=== PATIENT | female | born 1995 | race Caucasian/White ===

== ENCOUNTER 2018-05-06 22:44 | Observation (INO) ==
[2018-05-06 23:32] LABS: Bilirubin,Urine Negative (Negative); Blood,Urine Negative (Negative); Clarity,Urine Turbid (Clear); Color,Urine Yellow (Yellow); Glucose,Urine (UA) Normal (Normal); Ketones,Urine 15 mg/dL (Negative); Leukocyte Esterase,Urine Moderate (Negative); Nitrite,Urine Negative (Negative); Protein,Urine 30 mg/dL (Neg-Trace); Specific Gravity,Urine 1.026 (1.010-1.025); Urobilinogen,Urine Normal (Normal)
[2018-05-06 23:34] LABS: Bacteria,Urine Moderate per hpf (None-Few); Hyaline Casts,Urine None Seen per lpf (None-Few); Squamous Epithelial Cell,Urine Many per lpf (None-Few)
[2018-05-06 23:42] LABS: Amphetamine Screen,Urine Negative ng/mL (Cutoff=1000); Barbiturate Screen,Urine Negative ng/mL (Cutoff=200); Benzodiazepines Screen,Urine Negative ng/mL (Cutoff=200); Cannabinoid Screen,Urine Negative ng/mL (Cutoff = 50); Cocaine Screen,Urine Negative ng/mL (Cutoff= 300); Opiate Screen,Urine Negative ng/mL (Cutoff=300); Phencyclidine Screen,Urine Negative ng/mL (Cutoff=25)
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
== END 2018-05-07 00:07 | disposition home or self-care (01) ==
LOC: 1NENULAB
PROVIDERS: ADMIT Advanced Practice Midwife; ATTEND Advanced Practice Midwife

== ENCOUNTER 2018-06-19 06:00 | Inpatient (IN) ==
[2018-06-19] MEDS ORDERED: Famotidine 20 MG/2 ML VIAL IVP PRN (06:44)
[2018-06-19] MEDS ORDERED: Naloxone 0.4 MG/ML INJ IVP PRN ×2 (06:44→15:55)
[2018-06-19 07:03] LABS: Basophils % 0.1 %; Eosinophils # 0.1 K/mcL (0.0-0.6); Hematocrit 35.9 % (35.3-44.9); Hemoglobin 11.9 g/dL (11.5-15.4); Immature Granulocytes % 0.4 % (0-4); Lymphocytes # 1.7 K/mcL (0.6-4.6); Lymphocytes % 19.9 %; Mean Corpuscular HGB Conc 33.1 g/dL (31.6-35.5); Mean Corpuscular Hemoglobin 27.5 pg (28.0-33.3); Mean Corpuscular Volume 82.9 fL (83.0-100.0); Mean Platelet Volume 10.2 fL (9.4-12.4); Monocytes # 0.6 K/mcL (0.0-1.3); Monocytes % 7.6 %; Neutrophils # 5.9 K/mcL (1.6-8.9); Platelet Count 239 K/mcL (140-400); Red Blood Count 4.33 M/mcL (3.82-4.97)
[2018-06-19 07:07] LABS: Amphetamine Screen,Urine Negative ng/mL (Cutoff=1000); Barbiturate Screen,Urine Negative ng/mL (Cutoff=200); Benzodiazepines Screen,Urine Negative ng/mL (Cutoff=300); Cannabinoid Screen,Urine Negative ng/mL (Cutoff = 50); Cocaine Screen,Urine Negative ng/mL (Cutoff= 300); Opiate Screen,Urine Negative ng/mL (Cutoff=300); Phencyclidine Screen,Urine Negative ng/mL (Cutoff=25)
[2018-06-19] MEDS ORDERED: miSOPROStol 100 MCG TABLET PO ONE (07:43)
[2018-06-19] MEDS ORDERED: *HR* Nalbuphine 10 MG/ML AMPUL IVP PRN (07:44)
[2018-06-19] MEDS ORDERED: D5% in 0.45% NACL 1,000 ML IVC SCH (07:45)
[2018-06-19] MEDS ORDERED: Penicillin G Potassium 5,000,000 UNIT in 0.9 % Sodium Chloride Mini Bag 100 ML IVPB ONE (07:46)
--- NOTE | 2018-06-19 08:58 | OB/GYN History & Physical ---
Date of Encounter: 06/19/18 Time of Encounter: 08:55 Assessment and Plan (1) 39 weeks gestation of Current visit: Yes Status: Acute Cytotec induction-PO already given. EFM with anticipation of vaginal delivery (2) GDM, class A2 Current visit: Yes Status: Acute Patient states she had been on bid Metformin but had it lowered to once daily and her blood sugars have been normal. Her most recent ultrasound at [facility] on 05/27 EFW 2676 gm (5lb 14 oz) and LESLIE 15.94 cm. (3) Obesity affecting in third trimester Current visit: Yes Status: Acute (4) GBS (group B Streptococcus carrier), +RV culture, currently Current visit: Yes Status: Acute PCN IV already started History of Present Illness Chief complaint: patient presents for induction of labor HPI: Ms. Pace is a 23 year old female G1 at 39 1/7 weeks presents to labor and delivery for induction due to her GDM status. She denies any leaking fluid or vaginal bleeding. She reports good movement. She denies any other complications with the . She states she has an allergy to naproxen that causes dizziness. She states she can take ibuprofen and aspirin without difficulty. Past Med Surg Social Fam HX - Past Medical History Source: patient Medical history: non-contributory Psychiatric history: no psych history - Past Surgical History Surgical History: other Additional surgical history: above left-cyst removed from her face - Social History Smoking Status: Never smoker Smokeless Tobacco Status: No Alcohol use: none Drug use: none - Family History Father Adopted: No Hx Family Cardiac Disorders: No Hx Family Respiratory Disorders: No Hx Family Cancer: No Hx Family GI Disorders: No Hx Family Genitourinary Disorders: No Hx Family Endocrine Disorder: Yes (DM) Hx Family Musculoskeletal Disorders: No Hx Family Neuromuscular Disorders: No Hx Family Neurologic Disorders: No Hx Family HEENT Disorders: No Hx Family Autoimmune Disorders: No Hx Family Reproductive Disorders: No Hx Family Psychosocial Disorders: No Hx Family Medical Disorders: No Obstetrical History - Pregnancies : 1 Medications and Allergies Flintstones 2 tab PO DAILY 05/06/18 [History] Metformin HCl 500 mg PO BID 05/06/18 [History] 3 Allergy/AdvReac Type Severity Reaction Status Date / Time naproxen Allergy Drowsy Verified 06/19/18 06:42 Review of System OB All systems PM: reviewed and no additional remarkable complaints except as stated Exam - Constitutional Constitutional: well developed - HEENT HEENT: EOMI - Lungs Respiratory exam: CTAB - Cardiovascular Cardiovascular exam: RRR - Abdomen Abdomen: Present: bowel sounds normal, gravid, non tender - Vulva Vulva: bilateral: normal - Vagina Vagina: Present: normal moisture - Cervix Dilation: 2 Effacement: 80 Station: -3 Results Result Diagrams: 06/19/18 06:30 Abnormal lab results MCV 82.9 fL (83.0-100.0) L 06/19/18 06:30 MCH 27.5 pg (28.0-33.3) L 06/19/18 06:30 RDW 15.0 % (11.5-14.5) H 06/19/18 06:30 All other labs normal. - VTE Reasons for not Prescribing Prophylaxis: Treatment not Indicated - Low risk for VTE
[2018-06-19] MEDS: Penicillin G Potassium 2,500,000 UNIT in 0.9 % Sodium Chloride 100 ML IVPB SCH ×2 (12:56→17:18)
--- NOTE | 2018-06-19 13:25 | OB Labor Progress Note ---
Date of Encounter: 06/19/18 Time of Encounter: 13:21 Labor Progress Note - Subjective Subjective: Patient denies any complaints. She states she felt some contractions. - Cervix Cervix: 4/80/-3 cephalic - Heart Tones Heart Tones: category 1, baseline 140 - Haystack Haystack: q2-5 minutes - Interventions Interventions: AROM with clear fluid. IUPC placed without difficulty - Plan Plan: Continue expectant management. Augment with pitocin if needed.
[2018-06-19] MEDS ORDERED: Oxytocin 20 units/ LR 1000 mL 20 UNIT/1,000 ML BAG IVC SCH (13:30)
[2018-06-19] MEDS ORDERED: Ringers Solution, Lactated 1,000 ML ONE ×2 (15:25→15:47)
[2018-06-19] MEDS ORDERED: *HR* FentaNYL (PF) 100 MCG/2 ML VIAL EP ONE (15:55)
[2018-06-19] MEDS ORDERED: Bupivacaine-MPF 0.25% 10 ML VIAL EP ONE (15:55)
[2018-06-19] MEDS ORDERED: *HR* Ropivacaine/PF 0.2% 20 ML VIAL EP ONE (15:55)
[2018-06-19] MEDS ORDERED: Ondansetron 4 MG/2 ML VIAL IVP PRN (15:55)
[2018-06-19] MEDS ORDERED: EPHEDrine 50 MG/ML VIAL IVP PRN (15:55)
[2018-06-19] MEDS ORDERED: Epidural Premix (fent/bupiv) 110 ML EP SCH (16:00)
[2018-06-19] MEDS ORDERED: Lidocaine -MPF 2% 5 ML VIAL ONE (16:03)
[2018-06-19] MEDS ORDERED: *HR* FentaNYL (PF) 100 MCG/2 ML VIAL ONE (16:03)
--- NOTE | 2018-06-19 16:54 | Anesthesia Evaluation PreOp ---
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 History: Other (migraines) Other Medical History: Other (gestational diabetes takes metformin) Anesthesia History: No Prior Anesthetic Complications, Past Anesthesia (cyst removal from side of forehead) : Yes Alcohol Use: none Drug use: none Medications and Allergies Flintstones 2 tab PO DAILY 05/06/18 [History] Metformin HCl 500 mg PO BID 05/06/18 [History] 3 Allergy/AdvReac Type Severity Reaction Status Date / Time naproxen Allergy Drowsy Verified 06/19/18 06:42 - Meds/Allergy Pre-op Review Medications Reviewed: Yes Allergies Reviewed: Yes Beta Blockers on Current Med List: No Anesthesia Results - Labs 06/19/18 06:30 Anesthesia Exam BP124/73 P 85 R 18 T98.4 Height: 5'5" Weight: 89.2kg NPO (# of Hours): 12 hrs solids, sipping water Pain Scale: 8 Pain Scale Used: Numeric (1 - 10) - HEENT Pupil (Motor): Pupils equal Mallampati: II Teeth: Normal Oral Opening: Greater than 3 - CONTROL TOWER RADIO OPERATOR LOC: Oriented CONTROL TOWER RADIO OPERATOR Motor: Normal RUE, Normal LUE, Normal RLE, Normal LLE, Normal Face CONTROL TOWER RADIO OPERATOR Sensory: Normal: RUE, LUE, RLE, LLE, Face - Cardiac Rhythm: Regular Murmur: None JVD: No Carotid Bruit: No - Pulmonary Breath Sounds: bilateral Clear Respiratory Effort: Symmetrical Anesthesia Assess/Plan ASA Score: 2 Modified Heiskell Scale for Level of Consciousness: Cooperative, oriented, and tranquil Anesthetic Plan: Regional Autologous Blood: Yes Monitoring Plan: Standard Monitors Recovery Plan: Other
--- NOTE | 2018-06-19 16:59 | Anesthesia Procedures ---
Date of Encounter: 06/19/18 Time of Encounter: 16:08 Procedures: Anesthesia - Epidural/Spinal Patient ID/Chart reviewed: Yes Patient examined: Yes OB Eval: Gestational age: 39.1 OB Eval: : 1 OB Eval: Hx Para: 0 OB Eval: Dilated at (cm): 5 OB Eval: Contractions: Non-stressed pattern Consent Obtained: Yes Supplemental Oxygen: None/Room Air Site Prep: Aseptic Technique, Sterile prep and drape, Povidone-Iodine 1% Patient position: upright Local Anesthetic: Lidocaine 1% Amount of Local Anesthetic used: 3 Touhy Needle Gauge: 18 Touhy Needle Depth (cm): 6 Catheter Depth at Skin (cm): 5 Test Dose (1.5% Lido + Epi): Volume given (mls): 3 Test Dose Result: Negative Loading Dose: Fentanyl (mcg): 100 Loading Dose: Other: Naropin 0.2% 7ml Loading Dose Administered: Thru Catheter Infusion Med: 0.125% Bupivacaine w/ 2 mcg/ml Fentanyl Infusion Rate (mls/hr): [address]: Tegaderm, Tape Interspace Used: L4-L5 Loss of Resistance (WILBER): Yes Blood: No CSF: No Paresthesia: No Procedure: KATTY placed 1st pass in upright position without any immediate noted complications. VSS and FHT stable throughout. Vitals + FHT's: 1608 BP 124/73 P 85 R 18 1645 BP 131/75 P 86 R 16 FHT 140s
[2018-06-19] MEDS ORDERED: *HR* Ropivacaine/PF 0.2% 20 ML VIAL ONE (21:06)
--- NOTE | 2018-06-20 01:24 | OB/GYN Procedure Note ---
Delivery - Delivery Date: 06/20/18 Provider: Viky Bryan Intrapartum events: none Delivery induction: AROM, oxytocin, misoprostol Delivery monitor: external FHT, external uterine, internal uterine Anesthesia: epidural Quantitated Blood Loss: 300 - Infant (s) A Infant Delivery Date: 06/20/18 Infant Delivery Time: 00:59 Presentation: vertex Position: JEZ Route of delivery: Gender: Female Viability: Viable Pounds: 6 Ounces: 8 Weight Gram: 2.945 kg at 1 minute: 9 at 5 mins: 9 Shoulder Dystocia: not encountered Specimens collected: cord blood Placenta: spontaneous Cord: 3 umbilical vessels - Repair Episiotomy: none Laceration Description: Perineal - 1st Degree - Complications Delivery complications: uterine atony (treated with IM Methergine and resolved. ) Delivery comments: Called to room with patient complete and +2 station. Under maternal effort she delivered a viable female weighing 6 lbs. 8 oz. and Apgars 9 and 9 at one and 5 minutes respectively over a first-degree perineal laceration. Following delivery of the head there was no nuchal cord or shoulder dystocia encountered. The left hand was noted at the neck and was delivered along with the posterior shoulder. The remainder of the delivered with maternal effort. was placed on mom's abdomen. Cord was allowed to cease pulsations. Cord was double clamped and cut with assistance from father of the baby. First-degree perineal laceration was repaired using 3-0 Vicryl in standard fashion. Cord blood was collected. Placenta delivered spontaneously, complete, and intact with a three-vessel cord. Mother and infant recovered in the LDR in stable condition. - Disposition Mom disposition: stable in LDR [place] disposition: stable in LDR
[2018-06-20] MEDS ORDERED: Acetaminophen 325 MG TABLET PO PRN (01:25)
[2018-06-20] MEDS ORDERED: Measles/Mumps/Rubella Vacc 0.5 ML VIAL SQ PRN (01:25)
[2018-06-20] MEDS ORDERED: Oxytocin 20 units/ LR 1000 mL 20 UNIT/1,000 ML BAG IVC SCH (01:30)
[2018-06-20] MEDS ORDERED: Benzocaine/Menthol 56 GM AEROSOL SPRAY TP ONE (03:49)
[2018-06-20] MEDS: Ibuprofen 600 MG TABLET PO PRN ×3 (04:29→21:20)
[2018-06-20] MEDS: Prenatal Vit/FA 1 EACH TABLET PO SCH (08:13)
[2018-06-20] MEDS ORDERED: Methylergonovine 0.2 MG/ML AMPUL IM ONE (12:24)
[2018-06-21 08:03] VITALS: BP 103/69
[2018-06-21] MEDS: Ibuprofen 600 MG TABLET PO PRN (08:14)
[2018-06-21] MEDS: Prenatal Vit/FA 1 EACH TABLET PO SCH (08:15)
--- NOTE | 2018-06-21 09:21 | Discharge Summary ---
Date of Encounter: 06/21/18 Time of Encounter: 09:19 - Discharge Diagnosis (1) Vaginal delivery Priority: Primary Status: Acute Comments: Feeling well. Pain well controlled with by mouth pain meds Tolerating regular diet Voiding independently Lochia light Passing flatus, but no BM yet Ambulating independently Vital signs stable Discharge home today - Discharge Medications Prescriptions: Ibuprofen [Motrin] 600 mg PO Q6HR PRN #30 tablet PRN Reason: Cramping Docusate [Colace] 100 mg PO BID #30 capsule Home Medications: Flintstones 2 tab PO DAILY 05/06/18 [History] Acetaminophen [Tylenol] 650 mg PO Q6HR PRN tablet 06/21/18 [Rx] Docusate [Colace] 100 mg PO BID #30 capsule 06/21/18 [Rx] Ibuprofen [Motrin] 600 mg PO Q6HR PRN #30 tablet 06/21/18 [Rx] Allergies/Adverse Reactions: 3 Allergy/AdvReac Type Severity Reaction Status Date / Time naproxen Allergy Drowsy Verified 06/19/18 06:42 Data Procedures and tests throughout hospitalization: Laboratory Tests 06/19/18 06/19/18 06/19/18 06:30 06:30 06:30 WBC 8.3 RBC 4.33 Hgb 11.9 Hct 35.9 MCV 82.9 L MCH 27.5 L MCHC 33.1 RDW 15.0 H Plt Count 239 MPV 10.2 Immature Gran % 0.4 Seg Neutrophils % 71.0 Lymphocytes % 19.9 Monocytes % 7.6 Eosinophils % 1.0 Basophils % 0.1 Neutrophils # 5.9 Lymphocytes # 1.7 Monocytes # 0.6 Eosinophils # 0.1 Basophils # 0.0 Urine Opiates Screen Negative Ur Barbiturates Screen Negative Ur Phencyclidine Scrn Negative Ur Amphetamines Screen Negative U Benzodiazepines Scrn Negative Urine Cocaine Screen Negative U Marijuana (THC) Screen Negative Ur Drug Screen Interp See Below Blood Type A POSITIVE Date of admission: 06/19/18 06:11 Primary care physician: PCP NONE Discharging clinician: Perla Cisneros Anticipated date of discharge: 06/21/18 - Patient Status Disposition: Home, Self-Care Condition: Good Functional capacity at discharge: independent ambulation Overall status at discharge: patient is back to baseline - Discharge Instructions Follow Up With: NONE,PCP [Primary Care Provider] - Viky Bryan DO [Partnered Physician] - - Diet and Activity Activity: increase activity as tolerated Diet: regular diet Hospital Course Reason for admission: induction of labor, IUP at term Delivery: Episiotomy: none Laceration: 1st degree Other procedures: none complications: none Discharge diagnosis: IUP at term delivered [place] baby: female Time Attestation: Total time spent providing and/or coordinating discharge services: Time Spent: Less than 30 minutes Exam - Constitutional Vitals: Temp Pulse Resp BP Pulse Ox 97.8 F 86 14 103/69 99 06/21/18 08:01 06/21/18 08:01 06/21/18 08:01 06/21/18 08:01 06/21/18 08:01 General appearance IM: A&O X 3 - Respiratory Respiratory exam: Present: CTAB - Cardiovascular Cardiovascular exam IM: Present: RRR, +S1, +S2 - GI/Abdominal GI/Abdominal exam IM: no peritoneal signs - Rectal Rectal exam: deferred - Uterine Tone: Firm Uterus Position: 1 Finger Below Umbilicus, Midline - Extremities Exam Extremities exam IM: Present: calf tenderness - Neurological Exam Neurological exam: alert, CN II-XII intact, normal gait, oriented X3, reflexes normal, strengths equal and symetr throughout - Psychiatric Additional comments: Pt denies history of depression or anxiety. Signs and symptoms of depression discussed with patient and she verbalizes understanding of when to seek help.
== END 2018-06-21 12:25 | disposition home or self-care (01) | DRG 560 ==
LOC: 1NENULAB 06:11 → 1NENUOBS 06-20 03:46
PROVIDERS: ADMIT Obstetrics & Gynecology; ATTEND Obstetrics & Gynecology

== ENCOUNTER 2020-10-20 11:55 | Inpatient (IN) ==
[2020-10-20] MEDS ORDERED: Lidocaine 1% 20 ML MDV INFILT PRN (12:20)
[2020-10-20] MEDS ORDERED: Ondansetron 4 MG/2 ML VIAL IVP PRN ×2 (12:20→18:50)
[2020-10-20] MEDS ORDERED: Metoclopramide 10 MG/2 ML VIAL IVP PRN (12:20)
[2020-10-20] MEDS ORDERED: Famotidine 20 MG/2 ML VIAL IVP PRN (12:20)
[2020-10-20] MEDS ORDERED: Azithromycin 500 MG in 0.9 % Sodium Chloride 250 ML IVPB ONE (12:20)
[2020-10-20] MEDS ORDERED: *HR* Nalbuphine 10 MG/ML AMPUL IV PRN (12:20)
[2020-10-20] MEDS ORDERED: Naloxone 0.4 MG/ML INJ IVP PRN ×2 (12:20→18:50)
[2020-10-20] MEDS ORDERED: Penicillin G Potassium 5,000,000 UNIT in 0.9 % Sodium Chloride Mini Bag 100 ML IVPB ONE (12:23)
[2020-10-20] MEDS ORDERED: Oxytocin 20 units/ LR 1000 mL 20 UNIT/1,000 ML BAG IVC SCH (12:30)
[2020-10-20] MEDS ORDERED: D5% in 0.45% NACL 1,000 ML IVC SCH (12:45)
[2020-10-20 13:05] LABS: Basophils % 0.4 %; Eosinophils # 0.1 K/mcL (0.0-0.6); Eosinophils % 0.9 %; Hemoglobin 11.7 g/dL (11.5-15.4); Immature Granulocytes % 0.6 % (0-4); Lymphocytes # 1.5 K/mcL (0.6-4.6); Lymphocytes % 14.1 %; Mean Corpuscular HGB Conc 32.5 g/dL (31.6-35.5); Mean Corpuscular Hemoglobin 26.1 pg (28.0-33.3); Mean Corpuscular Volume 80.4 fL (83.0-100.0); Mean Platelet Volume 10.1 fL (9.4-12.4); Monocytes # 0.6 K/mcL (0.0-1.3); Monocytes % 5.2 %; Neutrophils # 8.6 K/mcL (1.6-8.9); Platelet Count 237 K/mcL (140-400); Red Blood Count 4.48 M/mcL (3.82-4.97); Red Cell Distribution Width 15.2 % (11.5-14.5); Segmented Neutrophils % 78.8 %
[2020-10-20 13:27] LABS: Amphetamine Screen,Urine Negative ng/mL (Cutoff=1000); Barbiturate Screen,Urine Negative ng/mL (Cutoff=200); Benzodiazepines Screen,Urine Negative ng/mL (Cutoff=200); Cannabinoid Screen,Urine Negative ng/mL (Cutoff = 50); Cocaine Screen,Urine Negative ng/mL (Cutoff= 300); Opiate Screen,Urine Negative ng/mL (Cutoff=300); Phencyclidine Screen,Urine Negative ng/mL (Cutoff=25)
[2020-10-20 13:52] LABS: Influenza A PCR Negative (Negative); Influenza B PCR Negative (Negative); Resp. Syncytial Virus PCR Negative (Negative)
[2020-10-20 14:00] LABS: SARS-CoV-2 by PCR (In House) Positive (Negative)
[2020-10-20] MEDS: Penicillin G Potassium 2,500,000 UNIT in 0.9 % Sodium Chloride 100 ML IVPB SCH ×2 (17:06→21:12)
[2020-10-20] MEDS ORDERED: EPHEDrine 50 MG/ML VIAL IVP PRN (18:50)
[2020-10-20] MEDS ORDERED: Ropivacaine/PF 0.2% 20 ML VIAL EP ONE (18:50)
[2020-10-20] MEDS ORDERED: Epidural Premix (fent/bupiv) 110 ML EP ONE (18:53)
[2020-10-20] MEDS: Epidural Premix (fent/bupiv) 110 ML EP SCH (19:27)
[2020-10-20] MEDS ORDERED: Ringers Solution, Lactated 1,000 ML ONE (21:04)
[2020-10-21] MEDS: Penicillin G Potassium 2,500,000 UNIT in 0.9 % Sodium Chloride 100 ML IVPB SCH (00:59)
[2020-10-21] MEDS: Epidural Premix (fent/bupiv) 110 ML EP SCH (01:15)
[2020-10-21] MEDS ORDERED: Lanolin 7 G OINT...G. TP PRN (08:42)
[2020-10-21] MEDS ORDERED: Benzocaine/Menthol 56 GM AEROSOL SPRAY TP PRN (08:42)
[2020-10-21] MEDS ORDERED: Oxytocin 20 units/ LR 1000 mL 20 UNIT/1,000 ML BAG IVC SCH (08:42)
[2020-10-21] MEDS: Acetaminophen 325 MG TABLET PO SCH ×2 (10:23→16:48)
[2020-10-21] MEDS: Prenatal Vit/FA 1 EACH TABLET PO SCH (10:23)
[2020-10-21] MEDS: miSOPROStoL 100 MCG TABLET PO SCH ×3 (10:23→20:27)
[2020-10-21] MEDS: Ibuprofen 600 MG TABLET PO SCH ×2 (10:24→16:48)
[2020-10-21] MEDS: valACYclovir 500 MG TABLET PO SCH (10:24)
[2020-10-21] MEDS ORDERED: miSOPROStoL 100 MCG TABLET VG ONE (14:21)
[2020-10-22] MEDS: Ibuprofen 600 MG TABLET PO SCH ×2 (00:36→08:19)
[2020-10-22] MEDS: Acetaminophen 325 MG TABLET PO SCH ×2 (00:36→08:19)
[2020-10-22 05:45] LABS: Basophils % 0.4 %; Eosinophils # 0.2 K/mcL (0.0-0.6); Eosinophils % 1.7 %; Hematocrit 25.9 % (35.3-44.9); Immature Granulocytes % 0.9 % (0-4); Lymphocytes # 2.5 K/mcL (0.6-4.6); Lymphocytes % 24.5 %; Mean Corpuscular HGB Conc 31.7 g/dL (31.6-35.5); Mean Corpuscular Hemoglobin 26.1 pg (28.0-33.3); Mean Corpuscular Volume 82.5 fL (83.0-100.0); Mean Platelet Volume 10.4 fL (9.4-12.4); Monocytes # 0.7 K/mcL (0.0-1.3); Monocytes % 6.8 %; Neutrophils # 6.6 K/mcL (1.6-8.9); Platelet Count 176 K/mcL (140-400); Red Blood Count 3.14 M/mcL (3.82-4.97); Red Cell Distribution Width 15.4 % (11.5-14.5); Segmented Neutrophils % 65.7 %
[2020-10-22 05:48] LABS: Hemoglobin 8.2 g/dL (11.5-15.4)
[2020-10-22 08:04] VITALS: BP 124/73
[2020-10-22] MEDS: valACYclovir 500 MG TABLET PO SCH (08:19)
[2020-10-22] MEDS: Prenatal Vit/FA 1 EACH TABLET PO SCH (08:19)
[2020-10-22] MEDS: miSOPROStoL 100 MCG TABLET PO SCH (08:20)
== END 2020-10-22 12:02 | disposition home or self-care (01) ==
LOC: 1NENULAB 11:55 → 1NENUOBS 10-21 08:34
PROVIDERS: ADMIT Obstetrics & Gynecology; ATTEND Obstetrics & Gynecology